=== PATIENT | female | born 1945 ===

== ENCOUNTER 2016-11-24 10:18 | Outpatient (CLI) | payer MEDICARE, MEDICAID ==
--- NOTE | 2016-11-24 12:08 | Diagnostic Imaging Report ---
Indication: Cough Comparison: None 2 views of the chest obtained. Findings: Cardiomediastinal silhouette and pulmonary vascularity are within normal limits for age. The diaphragmatic contour is smooth and costophrenic angles are sharp. No pleural effusions are identified. The bones are osteopenic. Endplate ossified noted throughout the thoracic spine.. Impression: No acute disease
== END 2016-11-24 12:00 | disposition home or self-care (01) ==
LOC: RAD 10:18
DX: R05 Cough (principal); M85.80 Other specified disorders of bone density and structure, unspecified site
CPT/HCPCS: 71020